=== PATIENT | female | born 1990 | race Caucasian/White ===

== ENCOUNTER 2023-06-12 09:51 | Inpatient (IN) | payer BC ==
[2023-06-12 10:22] VITALS: BMI 34.0
[2023-06-12] MEDS ORDERED: hydrALAZINE 20 MG/ML VIAL SLOW IVP PRN ×2 (10:57→12:15)
[2023-06-12 11:18] LABS: #Basophils 0.1 10x3/uL (0.0-0.2); #Eosinphils 0.1 10x3/uL (0.0-0.5); #Monocytes 0.6 10x3/uL (0.0-1.1); #Neutrophils 5.8 10x3/uL (1.5-8.4); %Basophils 0.6 % (0.0-2.0); %Eosinophils 1.7 % (0.0-6.0); %Lymphocytes 18.5 % (18.0-47.0); %Monocytes 7.5 % (0.0-10.0); %Neutrophils 71.5 % (40.0-75.0); Hematocrit 34.3 % (34.9-44.5); Hemoglobin 11.7 g/dL (12.0-15.5); Mean Corpuscular HGB CONC 34.1 g/dL (32.0-36.0); Mean Corpuscular Volume 87.9 fl (81.6-98.3); Mean Platelet Volume 12.7 fl (7.4-10.4); Platelet Count 233 10x3/uL (150-450); RBC Distribution Width 13.2 % (11.5-14.5); White Blood Cell (WBC) Count 8.1 10x3/uL (3.5-10.5)
[2023-06-12 11:33] LABS: ALT (SGPT) 16 U/L (8-55); AST (SGOT) 23 U/L (5-34); Albumin 3.3 g/dL (3.5-5.0); Alkaline Phosphatase 94 U/L (40-110); Anion Gap 15 mmol/L (10-20); BUN (Urea Nitrogen) 10 mg/dL (7.0-18.7); Bilirubin, Total 0.7 mg/dL (0.2-1.2); Calc. Creatinine Clearance 155 mL/min (70-130); Calcium 8.9 mg/dL (7.8-10.44); Carbon Dioxide 21 mmol/L (22-29); Chloride 105 mmol/L (98-107); Estimated GFR 111; Globulin 2.9 g/dL (2.4-3.5); Glucose 83 mg/dL (70-105); Potassium 3.6 mmol/L (3.5-5.1); Protein, Total 6.2 g/dL (6.0-8.3); Sodium 137 mmol/L (136-145)
[2023-06-12 12:05] LABS: Creatinine, Urine 221.63 mg/dL (47-110)
[2023-06-12] MEDS ORDERED: Oxytocin 30 units/NS 500 ML 500 ML IV SCH ×3 (12:15)
[2023-06-12] MEDS ORDERED: Lidocaine 1% (PF) 30 ML VIAL SC PRN (12:15)
[2023-06-12] MEDS ORDERED: Lorazepam 2 MG/ML VIAL SLOW IVP PRN (12:15)
[2023-06-12] MEDS ORDERED: HYDROcodone/Acetaminophen 5/325 mg Tablet PO PRN ×2 (12:15)
[2023-06-12] MEDS ORDERED: Promethazine HCl 25 MG/ML VIAL IM PRN (12:15)
[2023-06-12] MEDS ORDERED: Ondansetron PF 4 MG/2 ML Vial IVP PRN (12:15)
[2023-06-12] MEDS ORDERED: Labetalol HCl 100 MG/20 ML VIAL SLOW IVP PRN ×2 (12:15)
[2023-06-12] MEDS ORDERED: Ibuprofen 800 MG TAB PO PRN (12:15)
[2023-06-12] MEDS ORDERED: fentaNYL 50 mcg/mL 1 mL Vial SLOW IVP PRN (12:15)
[2023-06-12] MEDS ORDERED: Calcium Gluc 4.6 MEQ/10 ML (100 MG/ML) SLOW IVP PRN (12:15)
[2023-06-12] MEDS: Misoprostol 100 MCG TAB PO SCH ×4 (13:18→23:15)
[2023-06-12 13:30] LABS: Hematocrit 35.8 % (34.9-44.5); Hemoglobin 12.2 g/dL (12.0-15.5); Mean Corpuscular HGB CONC 34.1 g/dL (32.0-36.0); Mean Corpuscular Hemoglobin 29.6 pg (27.0-33.0); Mean Corpuscular Volume 86.9 fl (81.6-98.3); Mean Platelet Volume 13.4 fl (7.4-10.4); Platelet Count 244 10x3/uL (150-450); RBC Distribution Width 13.4 % (11.5-14.5); Red Blood Cell (RBC) Count 4.12 10x6/uL (3.90-5.03); White Blood Cell (WBC) Count 9.2 10x3/uL (3.5-10.5)
[2023-06-12 14:03] LABS: HBSAg Index 0.18 S/CO (0-0.99); Hep B Surf Ag - L&D Non-Reactive S/CO (NonReactive)
[2023-06-12 14:04] LABS: Syphilis Antibody Nonreactive (Nonreactive); Syphilis Antibody Index 0.04 S/CO (<1.00 Non-Reactive)
[2023-06-12] MEDS: Acetaminophen 500 MG TAB PO PRN (16:41)
[2023-06-12] MEDS: Lactated Ringer's 1,000 ML IV SCH ×2 (20:00→23:15)
[2023-06-12] MEDS ORDERED: Misoprostol 100 MCG TAB VAG SCH (23:00)
[2023-06-12] MEDS: Misoprostol 100 MCG TAB VAG SCH (23:53)
[2023-06-13] MEDS: Magnesium Sulfate 20 gm/500 ml 20 GM/500 ML BAG IVPB SCH (05:55)
[2023-06-13] MEDS ORDERED: fentaNYL/Ropivacaine Epidural 100 ML ONE (08:18)
[2023-06-13] MEDS ORDERED: ePHEDrine Sulfate 50 MG/10 ML VIAL SLOW IVP PRN (09:48)
[2023-06-13] MEDS ORDERED: Naloxone HCl 0.4 mg/ml Vial IVP PRN ×2 (09:48)
[2023-06-13] MEDS ORDERED: diphenhydrAMINE 50 MG/ML VIAL IVP PRN (09:48)
[2023-06-13] MEDS ORDERED: Acetaminophen 325 MG TAB PO PRN (09:48)
[2023-06-13] MEDS ORDERED: Lactated Ringer's 500 ML IV PRN (09:48)
[2023-06-13] MEDS ORDERED: Moisturizing Cream (Eucerin) 113 GM JAR TOP PRN (09:48)
[2023-06-13] MEDS ORDERED: Ondansetron PF 4 MG/2 ML Vial IVP PRN ×2 (09:48→15:49)
[2023-06-13] MEDS ORDERED: Promethazine HCl 25 MG/ML VIAL IM PRN (09:48)
[2023-06-13] MEDS ORDERED: Communication Order-Pharmacy FS SCH (10:00)
[2023-06-13] MEDS ORDERED: fentaNYL 2 mcg/Ropivacaine 0.2% Epidural 100 ML CADD EPIDURAL SCH (10:00)
[2023-06-13] MEDS ORDERED: diphenhydrAMINE 25 MG CAP PO PRN (15:49)
[2023-06-13] MEDS ORDERED: Preparation H Ointment 28 GM TUBE PR PRN (15:49)
[2023-06-13] MEDS ORDERED: Bisacodyl 10 MG SUPP PR PRN (15:49)
[2023-06-13] MEDS ORDERED: Lanolin Ointment 7 GM TUBE TOP PRN (15:49)
[2023-06-13] MEDS ORDERED: Benzocaine-Menthol 82.5 ML CAN TOP PRN (15:49)
[2023-06-13] MEDS ORDERED: Milk Of Magnesia 30 ML UDCUP PO PRN (15:49)
[2023-06-13] MEDS ORDERED: Boostrix 0.5 ML (Tdap) VIAL (>/=7 yrs of age) IM ONE (15:49)
[2023-06-13] MEDS ORDERED: hydrALAZINE 20 MG/ML VIAL SLOW IVP PRN (15:49)
[2023-06-13 15:50] LABS: Analyzer IN Cardio CS NICU; pH (Cord, venous) 7.261 (7.250-7.350)
[2023-06-13] MEDS ORDERED: Oxytocin 30 units/NS 500 ML 500 ML IV SCH (16:00)
[2023-06-13] MEDS ORDERED: Ferrous Sulfate 325 MG TAB PO SCH (17:00)
[2023-06-13] MEDS: Acetaminophen 500 MG TAB PO PRN (17:35)
[2023-06-13] MEDS ORDERED: HYDROcodone/Acetaminophen 5/325 mg Tablet PO PRN (20:52)
[2023-06-13] MEDS: Docusate 100 MG CAP PO SCH (21:02)
[2023-06-13] MEDS: HYDROcodone/Acetaminophen 5/325 mg Tablet PO PRN (21:03)
[2023-06-13] MEDS: Ibuprofen 800 MG TAB PO SCH (21:04)
[2023-06-14] MEDS: Magnesium Sulfate 20 gm/500 ml 20 GM/500 ML BAG IVPB SCH ×2 (00:39→10:50)
[2023-06-14] MEDS: Lactated Ringer's 1,000 ML IV SCH ×3 (00:40→16:17)
[2023-06-14] MEDS: Acetaminophen 500 MG TAB PO PRN (01:43)
[2023-06-14] MEDS: HYDROcodone/Acetaminophen 5/325 mg Tablet PO PRN ×3 (05:34→23:28)
[2023-06-14] MEDS: Ibuprofen 800 MG TAB PO SCH ×3 (08:30→17:44)
[2023-06-14] MEDS: NIFEdipine XL 30 MG ER.TAB PO SCH (08:31)
[2023-06-14] MEDS ORDERED: Prenatal Vitamin 1 TAB PO SCH ×2 (09:00→15:30)
[2023-06-14] MEDS ORDERED: Oxytocin 30 units/NS 500 ML 500 ML IV SCH (15:17)
[2023-06-14] MEDS ORDERED: Ondansetron PF 4 MG/2 ML Vial IVP PRN (15:17)
[2023-06-14] MEDS ORDERED: Lanolin Ointment 7 GM TUBE TOP PRN (15:17)
[2023-06-14] MEDS ORDERED: diphenhydrAMINE 25 MG CAP PO PRN (15:17)
[2023-06-14] MEDS ORDERED: HYDROcodone/Acetaminophen 5/325 mg Tablet PO PRN (15:17)
[2023-06-14] MEDS ORDERED: hydrALAZINE 20 MG/ML VIAL SLOW IVP PRN (15:17)
[2023-06-14] MEDS ORDERED: Preparation H Ointment 28 GM TUBE PR PRN (15:17)
[2023-06-14] MEDS ORDERED: Bisacodyl 10 MG SUPP PR PRN (15:17)
[2023-06-14] MEDS ORDERED: Milk Of Magnesia 30 ML UDCUP PO PRN (15:17)
[2023-06-14] MEDS ORDERED: Ferrous Sulfate 325 MG TAB PO SCH (15:30)
[2023-06-14] MEDS ORDERED: Docusate 100 MG CAP PO SCH (15:30)
[2023-06-14] MEDS ORDERED: Ibuprofen 800 MG TAB PO SCH (16:00)
[2023-06-14] MEDS: Misoprostol 100 MCG TAB VAG SCH ×2 (16:16→16:17)
[2023-06-14] MEDS: Docusate 100 MG CAP PO SCH ×2 (16:18→23:28)
[2023-06-15] MEDS: Ibuprofen 800 MG TAB PO SCH ×3 (05:48→20:50)
[2023-06-15] MEDS: Ferrous Sulfate 325 MG TAB PO SCH ×2 (09:40→18:12)
[2023-06-15] MEDS: NIFEdipine XL 30 MG ER.TAB PO SCH (09:44)
[2023-06-15] MEDS: Prenatal Vitamin 1 TAB PO SCH (09:44)
[2023-06-15] MEDS: Docusate 100 MG CAP PO SCH ×2 (09:45→20:50)
[2023-06-15] MEDS ORDERED: Levothyroxine Sodium 50 MCG TAB PO SCH (10:00)
[2023-06-15] MEDS: HYDROcodone/Acetaminophen 5/325 mg Tablet PO PRN ×2 (13:19→18:05)
[2023-06-16] MEDS: Ibuprofen 800 MG TAB PO SCH ×2 (05:46→14:37)
[2023-06-16] MEDS: NIFEdipine XL 30 MG ER.TAB PO SCH (08:38)
[2023-06-16] MEDS: Prenatal Vitamin 1 TAB PO SCH (08:38)
[2023-06-16] MEDS: Docusate 100 MG CAP PO SCH (08:39)
[2023-06-16] MEDS: Ferrous Sulfate 325 MG TAB PO SCH (11:28)
[2023-06-16 11:35] VITALS: BP 139/89; TEMP 98.3
== END 2023-06-16 15:05 | disposition home or self-care (01) | DRG 807 ==
LOC: CSHLD/OP 09:51 → CSHLD 12:44 → CSHPP 06-14 15:48
PROVIDERS: ADMIT Obstetrics & Gynecology; ATTEND Obstetrics & Gynecology
PROC: 3E0P7VZ Introduction of Hormone into Female Reproductive, Via Natural or Artificial Opening (ICD-10-PCS; 2023-06-12)
PROC: 10D07Z6 Extraction of Products of Conception, Vacuum, Via Natural or Artificial Opening (ICD-10-PCS; principal; 2023-06-13)
PROC: 0KQM0ZZ Repair Perineum Muscle, Open Approach (ICD-10-PCS; 2023-06-13)
PROC: 10H07YZ Insertion of Other Device into Products of Conception, Via Natural or Artificial Opening (ICD-10-PCS; 2023-06-13)
PROC: 10907ZC Drainage of Amniotic Fluid, Therapeutic from Products of Conception, Via Natural or Artificial Opening (ICD-10-PCS; 2023-06-13)
PROC: 4A043R1 Measurement of Venous Saturation, Peripheral, Percutaneous Approach (ICD-10-PCS; 2023-06-13)
DX: O24.425 Gestational diabetes mellitus in childbirth, controlled by oral hypoglycemic drugs (principal); Z37.0 Single live birth; Z3A.38 38 weeks gestation of pregnancy; O14.14 Severe pre-eclampsia complicating childbirth; O70.1 Second degree perineal laceration during delivery; O76 Abnormality in fetal heart rate and rhythm complicating labor and delivery
CPT/HCPCS: 36415; 36416; 51702; 80053; 82570; 82805; 84156; 85025; 86780; 86850; 86900; 86901; 87340; 99285; J0360; J2590; J3475; J7120